=== PATIENT | male | born 1960 | race Caucasian/White ===

== ENCOUNTER → 2021-02-18 | Outpatient (CLI) | payer BC | LOC: COL.RAD 02-17 14:00 | DX: M43.26 Fusion of spine, lumbar region (principal); M48.061 Spinal stenosis, lumbar region without neurogenic claudication; M43.17 Spondylolisthesis, lumbosacral region ==

== ENCOUNTER → 2021-03-22 | Outpatient (CLI) | payer SELFPAY | LOC: MHCPAIN 12:29 | DX: M47.816 Spondylosis without myelopathy or radiculopathy, lumbar region (principal); M53.3 Sacrococcygeal disorders, not elsewhere classified; M54.5 Low back pain; M96.1 Postlaminectomy syndrome, not elsewhere classified | CPT/HCPCS: G0463 ==